=== PATIENT | female | born 1955 ===

== ENCOUNTER → 2019-02-25 11:59 | Day surgery (SDC) | payer BC ==
[~2019-02-25 11:59] MED LIST: Buffered Lidocaine 1% SYRIN* 1 ML/SYRINGE INTRADERM ONE; Dexamethasone IV* 4 MG/ML 1 ML (4 MG) ONE; Famotidine IV* 10 MG/ML 2 ML (20 mg) IV ONE; Famotidine IV* 10 MG/ML 2 ML (20 mg) ONE; Lactated Ringers 1000 ML Bag* 1,000 ML IV SCH; Lidocaine 2% PF * 5 ML VIAL ONE; Midazolam* 1 MG/ML 5 ML VIAL (5 MG) ONE; Ondansetron INJ* 2 MG/ML VIAL ONE; Propofol* 10 MG/ML 20 ML BTL ONE; fentaNYL* 50 MCG/ML 2 ML VIAL (100 MCG VIAL) ONE
[2019-02-25 16:30] VITALS: BP 128/77
--- NOTE | 2019-02-25 22:39 | PRO ---
CC: Dr. Debbie Cabrera * DATE OF PROCEDURE: 02/25/19 [facility] PROCEDURE PERFORMED: Colonoscopy. INDICATIONS: History of polyps in the past. REFERRING PHYSICIAN: Dr. Debbie Cabrera. MEDICATIONS GIVEN: Moderate anesthesia by anesthesia services. DESCRIPTION OF PROCEDURE: After the colonoscopy procedure, including the risks , benefits, and alternatives, not limited to perforation, surgery, and/or were explained Ms. Membreno, written consent was then obtained, propofol medication was given. Anorectal exam was performed. The rectal exam was unremarkable. An Olympus colonoscope was then inserted into the patient's rectum, advanced very carefully to the proximal ascending colon, tip of the cecum. 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 I did spend an extended amount of time to navigate through the colon. I was able to see the cecal cap unfortunately with pressure and moving the patient onto her back, I was unable the reach the base of the cecum. Scope was then withdrawn in a very careful manner over the next 12 minutes through the remainder of the colon. Two colorectal polyps were seen, both on the left side of the colon and the sigmoid colon and they were removed with jumbo biopsy forceps. Additionally, she had small internal hemorrhoids. The scope was withdrawn from the patient. She tolerated the procedure well and returned to the recovery room in stable condition. IMPRESSION: 1. Colonoscopy to the ascending colon and cecal cap with biopsy polypectomy. 2. Two colorectal polyps, status post biopsy polypectomy. 3. Extremely difficult colonoscopy due to the patient's adhesions, surgery and radiation. PLAN: I had a long discussion with the patient and her . Given the fact that she did have polypectomies today, I would like to perform a virtual colonography in approximately 2 years from now, as her colonoscopies really are not going to get any easier with time and the risk is going to increase given her adhesions. She is understanding and agreeable. [id number]/[facility] #: [id number] JAMES
== END | disposition home or self-care (01) ==
LOC: OR 11:59
PROVIDERS: ATTEND Internal Medicine Gastroenterology
DX: Z09 Encounter for follow-up examination after completed treatment for conditions other than malignant neoplasm (principal); Z87.19 Personal history of other diseases of the digestive system; K63.5 Polyp of colon; K66.0 Peritoneal adhesions (postprocedural) (postinfection); K64.8 Other hemorrhoids; I47.1 Supraventricular tachycardia; I34.1 Nonrheumatic mitral (valve) prolapse; I10 Essential (primary) hypertension; E03.9 Hypothyroidism, unspecified; K21.9 Gastro-esophageal reflux disease without esophagitis; Z86.711 Personal history of pulmonary embolism
CPT/HCPCS: 88305; J1100; J2250; J2405; J2704; J3010

== ENCOUNTER → 2019-08-12 11:57 | Day surgery (SDC) | payer BC ==
[~2019-08-12 11:57] MED LIST changes: +Acetaminophen TAB* 325 MG PO PRN; -Dexamethasone IV* 4 MG/ML 1 ML (4 MG) ONE; -Famotidine IV* 10 MG/ML 2 ML (20 mg) IV ONE; -Famotidine IV* 10 MG/ML 2 ML (20 mg) ONE; -Lidocaine 2% PF * 5 ML VIAL ONE; +Midazolam* 1 MG/ML 2 ML VIAL (2 MG) ONE; -Midazolam* 1 MG/ML 5 ML VIAL (5 MG) ONE; +Naloxone* 0.4 MG/ML 1 ML VIAL IV PRN; +Ondansetron INJ* 2 MG/ML VIAL IV PRN; -Ondansetron INJ* 2 MG/ML VIAL ONE; -fentaNYL* 50 MCG/ML 2 ML VIAL (100 MCG VIAL) ONE
[2019-08-12 15:25] VITALS: BP 149/65
--- NOTE | 2019-08-12 21:37 | PRO ---
CC: Dr. Nathan Borden * DATE OF PROCEDURE: 08/12/19 [facility] PROCEDURE: EGD. INDICATION: GERD and dysphagia. REFERRING PHYSICIAN: Dr. Nathan Borden. MEDICATIONS GIVEN: Per the Anesthesia staff. DESCRIPTION OF PROCEDURE: After the EGD procedure including the risks, benefits , and alternatives not limited to perforation, surgery, and/or were explained to the patient, written consent was then obtained, IV sedation was given by the Anesthesia staff, and a bite-block was placed between the teeth. An Olympus pediatric gastroscope was then inserted into the patient's mouth, advanced down the esophagus, into the stomach, into the distal duodenum. I initially attempted the procedure with an adult scope; however, the patient does have a very tight upper esophageal sphincter, I was not able to navigate down this. I switched to a pediatric scope and made it much easier. In the esophagus, the mucosa was thoroughly evaluated in the study. No abnormalities were seen. Multiple biopsies were obtained. At the GE junction, no stricture or ring was seen. No erosive esophagitis was seen. The scope easily advanced through the GE junction into the body of the stomach. Retroflex view was unremarkable. Forward view also was unremarkable. H. pylori biopsy was obtained. There was 1 small polyp in the fundus, removed with biopsy polypectomy. Scope was advanced through a widely patent pylorus, into the duodenal bulb, into the distal duodenum, both of which were unremarkable. Scope was withdrawn from the patient. She tolerated the procedure well and was returned to the recovery room in stable condition. IMPRESSION: 1. Complete upper endoscopy into the distal duodenum with biopsy polypectomy and biopsies. 2. Single fundus polyp. I will follow up on this. 3. No etiology was seen for her dysphagia. Biopsies were obtained to rule out eosinophilic esophagitis. 4. No stricture or ring was seen. I will follow up on the biopsies and report back to the patient at that time. [id number]/[facility] #: [id number] [facility]
== END | disposition home or self-care (01) ==
LOC: OR 11:57
PROVIDERS: ATTEND Internal Medicine Gastroenterology
DX: R13.10 Dysphagia, unspecified (principal); K21.9 Gastro-esophageal reflux disease without esophagitis; Z68.20 Body mass index [BMI] 20.0-20.9, adult; K31.7 Polyp of stomach and duodenum; I34.1 Nonrheumatic mitral (valve) prolapse; I10 Essential (primary) hypertension; E03.9 Hypothyroidism, unspecified; M19.90 Unspecified osteoarthritis, unspecified site; Z86.711 Personal history of pulmonary embolism; Z88.1 Allergy status to other antibiotic agents
CPT/HCPCS: 87077; 88305; J2250; J2704